=== PATIENT | male | born 1945 | race Hispanic/Latino ===

== ENCOUNTER 2022-05-21 20:29 | Emergency (ER) | payer BC, MEDICARE, OTHER ==
[~2022-05-21] VITALS: Ht 180.3 cm; Wt 85.7 kg
[2022-05-21 21:14] VITALS: BP 112/62
[2022-05-21] MEDS ORDERED: IBUP-2070 PO (21:47)
== END 2022-05-21 22:05 | disposition home or self-care (01) ==
LOC: EDH 20:29
DX: S82.032A Displaced transverse fracture of left patella, initial encounter for closed fracture (principal); I10 Essential (primary) hypertension; E11.9 Type 2 diabetes mellitus without complications; E78.00 Pure hypercholesterolemia, unspecified; W18.39XA Other fall on same level, initial encounter; Y93.89 Activity, other specified; Y92.89 Other specified places as the place of occurrence of the external cause; Y99.8 Other external cause status
CPT/HCPCS: 29505; 73562